=== PATIENT | male | born 1965 | race Caucasian/White ===

== ENCOUNTER 2023-03-14 07:39 | Outpatient (REF) | payer OTHER, SELFPAY ==
[2023-03-14 08:07] LABS: MANUAL DIFF FLAG NO
[2023-03-14 08:18] LABS: Basophils Percent Auto 0.7 % (0-2); Eosinophils Absolute Auto 0.6 X10*3/uL (0.0-0.4); Eosinophils Percent Auto 10.3 % (0-4); Hematocrit 46.6 % (42.0-52.0); Hemoglobin 15.6 g/dl (14.0-18.0); Imm Gran Abs Auto 0.02 X10*3/uL (0.00-0.03); Imm Gran Pct Auto 0.4 % (0.0-0.4); Lymphocytes Absolute Auto 1.3 X10*3/uL (1.2-4.9); Lymphocytes Percent Auto 23.6 % (20-40); Mean Corpuscular HGB Conc 33.5 g/dl (31.0-36.0); Mean Corpuscular Hemoglobin 27.5 pg (27.0-33.0); Mean Platelet Volume 9.3 fL (9.4-12.4); Monocytes Absolute Auto 0.5 X10*3/uL (0.1-1.2); Monocytes Percent Auto 9.7 % (2-11); Neutrophils Absolute Auto 3.1 x10*3/uL (2.0-8.3); Neutrophils Percent Auto 55.3 % (45-73); Platelet Count 142 X10*3/uL (160-400); Red Blood Count 5.68 X10*6/uL (4.60-5.80); Red Cell Distribution Width 13.9 % (11.0-16.0); White Blood Count 5.6 X10*3/uL (4.8-10.8)
[2023-03-14 09:03] LABS: Alanine Aminotransferase 18 U/L (0-40); Albumin Level 4.8 g/dL (3.5-5.0); Alkaline Phosphatase 79 U/L (39-117); Anion Gap 13 (12-20); Aspartate Amino Transferase 21 U/L (5-37); Bilirubin Total 1.7 mg/dL (0.0-1.0); Blood Urea Nitrogen 25 mg/dL (9-16); Calcium 9.9 mg/dL (8.4-10.2); Carbon Dioxide 27 mmol/L (22-29); Chloride 106 mmol/L (96-108); Cholesterol 157 mg/dL (<200); Estimated Glomerular Filt Rate 44; Glucose Random 102 mg/dL (60-115); HDL Cholesterol 45 mg/dL (>40); LDL Cholesterol Calculated 101 mg/dL (<100); Magnesium 2.3 mg/dL (1.6-2.6); Potassium 4.5 mmol/L (3.3-5.1); Sodium 141 mmol/L (135-145); Total Protein 7.7 g/dL (6.5-8.0); Triglycerides 57 mg/dL (<150)
[2023-03-14 09:20] LABS: Vitamin D 25-OH Total 50.8 ng/mL (>30)
[2023-03-15 15:13] LABS: Calcium (PTHI) 9.8 mg/dL (8.6-10.3); PTHI 22 pg/mL (16-77)
== END 2023-03-14 07:40 | disposition home or self-care (01) ==
LOC: HO.LAB 07:39
PROVIDERS: PCP Internal Medicine; Visit Provider Internal Medicine
DX: E78.2 Mixed hyperlipidemia (principal); Q61.2 Polycystic kidney, adult type
CPT/HCPCS: 36415; 80053; 80061; 82306; 83735; 83970; 85025

== ENCOUNTER 2023-09-24 09:50 | Outpatient (REF) | payer OTHER, SELFPAY ==
[2023-09-24 13:31] LABS: MANUAL DIFF FLAG NO
[2023-09-24 13:40] LABS: Basophils Absolute Auto 0.1 X10*3/uL (0.0-0.2); Eosinophils Absolute Auto 0.4 X10*3/uL (0.0-0.4); Hematocrit 47.8 % (42.0-52.0); Hemoglobin 16.3 g/dl (14.0-18.0); Imm Gran Abs Auto 0.02 X10*3/uL (0.00-0.03); Imm Gran Pct Auto 0.4 % (0.0-0.4); Lymphocytes Absolute Auto 1.3 X10*3/uL (1.2-4.9); Lymphocytes Percent Auto 25.1 % (20-40); Mean Corpuscular HGB Conc 34.1 g/dl (31.0-36.0); Mean Corpuscular Hemoglobin 29.1 pg (27.0-33.0); Mean Corpuscular Volume 85.2 fL (80.0-98.0); Mean Platelet Volume 10.1 fL (9.4-12.4); Monocytes Absolute Auto 0.5 X10*3/uL (0.1-1.2); Monocytes Percent Auto 9.5 % (2-11); Neutrophils Absolute Auto 2.9 x10*3/uL (2.0-8.3); Platelet Count 151 X10*3/uL (160-400); Red Blood Count 5.61 X10*6/uL (4.60-5.80); Red Cell Distribution Width 13.5 % (11.0-16.0); White Blood Count 5.1 X10*3/uL (4.8-10.8)
[2023-09-24 14:21] LABS: Alanine Aminotransferase 18 U/L (0-40); Albumin Level 4.9 g/dL (3.5-5.0); Alkaline Phosphatase 74 U/L (39-117); Anion Gap 14 (12-20); Aspartate Amino Transferase 21 U/L (5-37); Blood Urea Nitrogen 22 mg/dL (9-16); Calcium 9.6 mg/dL (8.4-10.2); Carbon Dioxide 26 mmol/L (22-29); Chloride 106 mmol/L (96-108); Cholesterol 192 mg/dL (<200); Estimated Glomerular Filt Rate 47; Glucose Random 84 mg/dL (60-115); HDL Cholesterol 50 mg/dL (>40); LDL Cholesterol Calculated 116 mg/dL (<100); Potassium 4.2 mmol/L (3.3-5.1); Sodium 142 mmol/L (135-145); Total Protein 7.6 g/dL (6.5-8.0); Triglycerides 132 mg/dL (<150)
[2023-09-24 14:35] LABS: Prostate Specific Antigen 2.35 ng/mL (<0.05-4.0)
[2023-09-24 14:37] LABS: Vitamin D 25-OH Total 37.3 ng/mL (>30)
== END 2023-09-24 09:51 | disposition home or self-care (01) ==
LOC: HO.MANLDS 09:50
PROVIDERS: Visit Provider Internal Medicine
DX: Z12.5 Encounter for screening for malignant neoplasm of prostate (principal); E78.2 Mixed hyperlipidemia
CPT/HCPCS: 36415; 80053; 80061; 82306; 84153; 85025

== ENCOUNTER 2024-09-30 09:05 | Outpatient (REF) | payer BC, SELFPAY ==
--- OUTSIDE RECORDS SUMMARY | 2024-09-30 09:29 | XMS_ITS | Continuity of Care Document ---
Author Organization [facility] Address [address] [place] [address] Assessment No assessment recorded. Plan of Treatment Reminders Order Date Submit Date Provider Last Modified By Organization Details Last Modified Time Details Appointments ANNUAL EXAM 2025 10:00A M DR CHAMBERS Not available Not available Not available Lab CMP, serum or plasma 2024 025 [facility], [address] [place] [address], [id number], 09/29/2024 09:31:28 CBC 2024 025 [facility], [address] [place] [address], [place], [address], 09/29/2024 09:31:28 PSA, serum or plasma 2024 025 [facility], [address] [place] [address], [id number], 09/29/2024 09:31:28 lipid panel, blood 2024 025 [facility], [address] [place] [address], [id number], 09/29/2024 09:31:28 Referral None recorded. Procedures None recorded. Surgeries None recorded. Imaging None recorded. Medication Orders hydrocort isone 2.5 % topical cream with perineal applicato r 2024 025 [id number], [address] [place] [address], [id number], 09/29/2024 09:31:55 diclofena c sodium 75 mg tablet,de layed release 2024 025 [id number], [address] [place] [address], [id number], 09/29/2024 09:30:11 Patient TargetsNo targets recorded. Patient InstructionsNo instructions recorded. Reason for Referral None Reported. Problems Name Problem SNOMED Code Status Onset Date Resolution Date Notes Provider Name and Address Organization Details Recorded Time Essleyla l hyperten adam 99537835 Active [address] 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 Cornelius Chambers, DO [address] [place] [address], [phone], [facility] 0 11:56:09 Prostate specific antigen above referenc e range 204319799 Active 2021 Magui morales [facility] 5 10:35:45 Hypertri glycerid emia 893197386 Active 2021 Magui morales [facility] 5 10:35:45 Right upper quadrant pain 822091755 Active 2022 Magui morales [facility] 5 10:35:55 Lipoma of skin 475626907 Active 2022 Magui morales [facility] 5 10:35:55 Renal mass 846579835 Active 2022 Maguinida Magallon null, [facility] 5 10:35:55 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 Active 2022 Cornelius Abel Idaniawendi, DO [address] [place] [address], [phone], [facility] 3 23:27:24 Cough 29026134 Active 2022 Magui Magallon null, [facility] 5 10:35:55 Mass of skin of back 82538885425 9103 Active 2022 Maguinida Magallon null, [facility] 5 10:35:54 Onychomy cosis of toenails 024292980 Active 2023 Maguinida Magallon null, [facility] 5 10:35:55 Exotropi a of left eye 62221278061 750463 Active 2023 Maguinida Magallon null, [facility] 5 10:35:55 Calcific coronary arterios clerosis 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 Please review this document and add these problems to the patient's chart manually as needed. Problem Notes None recorded. Medical Equipment None Reported. Allergies No known drug allergies Medications Name Sig Start Date Stop Date Status Note LastModified by Organization Details LastModified Time atorvasta tin 10 mg tablet TAKE 1 TABLET BY MOUTH EVERY DAY DIRECTED active Not Available Not Available No t Available ciproflox acin 500 mg tablet 01/22 completed Not Available Not Available Not Available hydrocort isone 2.5 % topical cream with perineal applicato r APPLY A THIN LAYER TO THE AFFECTED AREA(S) BY TOPICAL ROUTE 2-4 TIMESDAI LY 2024 active Not Available Not Available Not Avai lable terbinafi ne HCl 250 mg tablet TAKE 1 TABLET BY MOUTH EVERY DAY active Not Available Not Available No t Available gemfibroz il 600 mg tablet TAKE 1 TABLET BY MOUTH TWICE DAILY 09/29 completed stop due to statins Not Available Not Available Not Available losartan 25 mg tablet TAKE 1 TABLET BY MOUTH TWICE DAILY active Not Available Not Available No t Available diclofena c sodium 75 mg tablet,de layed release Take 1 tablet twice a day by oral route for 30 days. 2024 active Not Available Not Available Not Avai lable allopurin ol 300 mg tablet TAKE 1 TABLET BY MOUTH EVERY DAY active Not Available Not Available No t Available Fluarix Quad (PF) 60 mcg (15 mcg x 4)/0.5 mL IM syringe 08/17 completed Not Available Not Available Not Available BinaxNOW COVID-19 Ag Self Test kit TEST DIRECTED TODAY 09/23 completed Not Available Not Available Not Available Vitals Date Recorded Body weight Oxygen saturation Oxygen saturation in Arterial blood by Pulse oximetry Heart rate Systolic blood pressure Diastolic blood pressure Provider Name and Address Organization Details Last Updated DateTime 5 314040 g 98 % 98 % 75 /min 118 mm[Hg] 78 mm[Hg] [facility] 5 09:04:10 Social History Question Answer Notes LastModified by Organizat ion Details LastModified Time Tobacco Smoking Status Never Smoker Not Available [facility] 03/01/2020 03:36:23 What Was The Date Of Your Most Recent Tobacco Screening? 09/29/2024 [email or web address] Information not available 09/29/2024 Sex: Unknown Functional Status Question Answer Note LastModified by Organization D etails LastModified Time Do you or have you ever used any other forms of tobacco or nicotine? No [email or web address] Information not available 07/23/2022 Mental Status None recorded. Family History Nothing Reported. Medical History No medical history recorded. Immunizations Vaccine Type Date Status Note Provider Nam e and Address Organization Details Recorded Time Influenza, split virus, quadrivalent, preservative 1 completed Yen morales [facility] 06/05/2021 09:34:05 zoster, unspecified formulation 2 completed Yen morales [facility] 06/05/2021 09:34:32 COVID-19, mRNA, LNP-S, PF, 100 mcg/0.5mL dose or 50 mcg/0.25mL dose 1 completed Yen morales [facility] 06/05/2021 09:34:58 COVID-19, mRNA, LNP-S, PF, 100 mcg/0.5mL dose or 50 mcg/0.25mL dose 1 completed Yen morales [facility] 06/05/2021 09:35:06 COVID-19, mRNA, LNP-S, PF, 100 mcg/0.5mL dose or 50 mcg/0.25mL dose 2 completed Yen morales [facility] 06/05/2021 09:35:17 influenza, intradermal, quadrivalent, preservative free 2 completed Cornelius Chambers DO [address] [place] [address], [phone], [facility] 01/22/2022 15:14:28 zoster recombinant 1 completed Cornelius Chambers DO [address] [place] [address], [phone], [facility] 01/22/2022 15:15:56 Past Encounters Encounter ID Performer Location Encounter Start Date Encounter Closed Date Diagnosis/Indication Diagnosis SNOMED-CT Code Diagnosis ICD10 Code Diagnosis Note [id number] Cornelius Chambers DO [facility] [address],[place] [address] 09/29/2024 08:54:45 09/29/2024 09:38:45 Active or passive immunization 389510119 Z23 willl look to get tdap in future when avail Essential hypertension 31384316 I10 stable bp and doing well reviewed lab in detail and is without issue no change in meds General ex amination of patient 638472612 Z00.01 doing well will review lab noted onychomyco sis great toe Primary go narthrosis, bilateral 206905796 M17.0 Bleeding hemorrhoids 515 64556 K64.9 Health Concerns Section Related Observation LastModified by Organization Detai ls LastModified Time None Recorded Concern Status LastModified by Organization Details LastModified Time None Recorded Payers Encounter Date Sequence Insurance Name Policy Number Policy Beltran Covered Member ID Beltran Member ID Guarantor Name 09/29/2024 1 [facility] [id number] Nitesh Valentine [id number] Nitesh Valentine Notes Date Note Type Note Provider Name a nd Address Organization Details Recorded Time 5 text/html Annual WellnessReported bypatient.Diet and Nutrition:healthy diet Fracture Risk:no history of fractures; no recent explained fracture; no sudden unexplained fractures; no previous musculoskeletal injuries Physical Activity:exercises on a regular basis; recent increase in physical activity; good physical condition Additional Lifestyle Factors:no tobacco use; no alcohol intake; stopped drinking alcohol Depression Risk:never feels sad, empty, or tearful; no loss of interest in activities; no significant changes in weight; no sleep disturbances or insomnia; no agitation; no loss of energy; no feelings of worthlessness or guilt; no thoughts of suicide; no history of depression; no history of mood disorders Hearing:no loss of hearing Vision:no vision problems no cp no sobsleep adeel Chambers, [address] [place], [address], [facility] 09/29/2024 09:33:24
[2024-09-30 13:02] LABS: MANUAL DIFF FLAG NO
[2024-09-30 13:06] LABS: Basophils Percent Auto 0.7 % (0-2); Eosinophils Absolute Auto 0.2 X10*3/uL (0.0-0.4); Eosinophils Percent Auto 3.5 % (0-4); Hematocrit 45.6 % (42.0-52.0); Hemoglobin 15.2 g/dl (14.0-18.0); Imm Gran Abs Auto 0.03 X10*3/uL (0.00-0.03); Imm Gran Pct Auto 0.6 % (0.0-0.4); Lymphocytes Absolute Auto 1.4 X10*3/uL (1.2-4.9); Lymphocytes Percent Auto 25.9 % (20-40); Mean Corpuscular HGB Conc 33.3 g/dl (31.0-36.0); Mean Corpuscular Hemoglobin 28.1 pg (27.0-33.0); Mean Corpuscular Volume 84.3 fL (80.0-98.0); Mean Platelet Volume 9.9 fL (9.4-12.4); Monocytes Absolute Auto 0.5 X10*3/uL (0.1-1.2); Monocytes Percent Auto 9.8 % (2-11); Neutrophils Absolute Auto 3.2 x10*3/uL (2.0-8.3); Neutrophils Percent Auto 59.5 % (45-73); Platelet Count 137 X10*3/uL (160-400); Red Blood Count 5.41 X10*6/uL (4.60-5.80); Red Cell Distribution Width 13.2 % (11.0-16.0); White Blood Count 5.4 X10*3/uL (4.8-10.8)
[2024-09-30 15:12] LABS: Alanine Aminotransferase 28 U/L (0-40); Albumin Level 4.6 g/dL (3.5-5.0); Alkaline Phosphatase 80 U/L (39-117); Anion Gap 11 (12-20); Aspartate Amino Transferase 34 U/L (5-37); Bilirubin Total 2.5 mg/dL (0.0-1.0); Blood Urea Nitrogen 30 mg/dL (9-16); Calcium 9.3 mg/dL (8.4-10.2); Carbon Dioxide 27 mmol/L (22-29); Chloride 108 mmol/L (96-108); Cholesterol 127 mg/dL (<200); Estimated Glomerular Filt Rate 42; Glucose Random 88 mg/dL (60-115); HDL Cholesterol 37 mg/dL (>40); LDL Cholesterol Calculated 45 mg/dL (<100); Potassium 4.2 mmol/L (3.3-5.1); Sodium 142 mmol/L (135-145); Triglycerides 228 mg/dL (<150)
== END 2024-09-30 09:06 | disposition home or self-care (01) ==
LOC: HO.MANLDS 09:05
PROVIDERS: Visit Provider Internal Medicine
DX: I10 Essential (primary) hypertension (principal); Z12.5 Encounter for screening for malignant neoplasm of prostate
CPT/HCPCS: 36415; 80053; 80061; 84153; 85025